=== PATIENT | female | born 2005 | race Caucasian/White ===

== ENCOUNTER 2024-04-16 08:00 | Outpatient (CLI) | payer MEDICAID ==
--- NOTE | 2024-04-16 17:07 | XRAY Report ---
PROCEDURE: Shoulder 2+V RT INDICATIONS: PAIN IN THE RIGHT SHOULDER TECHNIQUE: 2 views of the shoulder were acquired. COMPARISON: None. FINDINGS: Bones: Linear lucency in the scapula, seen only on one view. Soft tissues: No suspicious soft tissue calcifications. The visualized lungs are within normal limi ts. IMPRESSION: Linear lucency in the scapula, seen only on one view. Findings probably represents artifact in the ab sence of any recent major trauma. Reviewed by: Julián Joseph MD on 04/16/2024 5:05 PM PDT Approved by: Julián Joseph MD on 04/16/2024 5:05 PM PDT Station ID: [id number]
== END 2024-05-05 08:15 | disposition home or self-care (01) ==
LOC: DI.N 08:00
PROVIDERS: ATTEND Physician Assistant
DX: M25.511 Pain in right shoulder (principal)